=== PATIENT | male | born 1965 | race Caucasian/White ===

== ENCOUNTER 2018-05-02 19:24 | Emergency (ER) | payer OTHER ==
[2018-05-02] MEDS ORDERED: LET GEL TOPICAL 1 EA SYR TP ONE (19:56)
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
[2018-05-02 20:44] VITALS: BP 132/74
== END 2018-05-02 20:44 | disposition home or self-care (01) ==
PROC: 2W38X1Z Immobilization of Right Upper Extremity using Splint (ICD-10-PCS; principal; 2018-05-02)
DX: S52.021A Displaced fracture of olecranon process without intraarticular extension of right ulna, initial encounter for closed fracture (principal); V13.0XXA Pedal cycle driver injured in collision with car, pick-up truck or van in nontraffic accident, initial encounter; Y93.55 Activity, bike riding; Y92.410 Unspecified street and highway as the place of occurrence of the external cause; Y99.8 Other external cause status
CPT/HCPCS: A4565

== ENCOUNTER 2018-05-04 20:55 | Emergency (ER) | payer OTHER ==
[2018-05-04 21:06] VITALS: BP 139/87
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
[2018-05-04] MEDS ORDERED: CEPHALEXIN 500MG PREPACK#4 BTL TAKEHOME ONE (21:21)
== END 2018-05-04 21:54 | disposition home or self-care (01) ==
PROC: 2W38X1Z Immobilization of Right Upper Extremity using Splint (ICD-10-PCS; principal; 2018-05-04)
DX: L08.89 Other specified local infections of the skin and subcutaneous tissue (principal); L29.9 Pruritus, unspecified; S52.021A Displaced fracture of olecranon process without intraarticular extension of right ulna, initial encounter for closed fracture